=== PATIENT | female | born 1985 | race Caucasian/White ===

== ENCOUNTER 2017-05-01 20:28 | Emergency (ER) | payer SELFPAY ==
[~2017-05-01] VITALS: Wt 66.5 kg
[2017-05-01 21:13] VITALS: Wt 66.5 kg
[2017-05-01] MEDS ORDERED: ACETAMINOPHEN 325 MG TAB PO STA (21:37)
--- NOTE | 2017-05-01 21:42 | ERD ---
ER Documentation Chief Complaint Date/Time DATE: 05/01/17 TIME: 21:39 Chief Complaint Vaginal bleeding with Pelvic pain at 1400. 7 weeks HPI This is a 31-year-old female presenting to the emergency department for vaginal bleeding and pelvic pain x 7 hours. Patient states she is currently 7 weeks and unsure of her last menstrual period. Patient has had pelvic pain to suprapubic area that radiates to her lower back for the past 3 days. Patient developed light red vaginal bleeding with passage of multiple clots starting today. Patient is a A1. 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 Patient is unsure who her SENIOR LINUX UNIX ENGINEER's. Patient has not had an ultrasound yet. ROS All systems reviewed and are negative except as per history of present illness. Medications Home Meds Discontinued Scripts Hydrocodone/Acetaminophen ([place] 5-325 Tablet) 1 Each Tablet, 1 TAB PO Q6H Y for PAIN, #7 TAB Prov:YANELIS NASH NP 05/02/17 Allergies Allergies: Coded Allergies: No Known Allergy (Unverified , 05/01/17) Physical Exam Vitals Vital Signs Date Time Temp Pulse Resp B/P Pulse Ox O2 Delivery O2 Flow Rate FiO2 05/02/17 01:10 67 18 109/57 98 Room Air 05/01/17 21:13 99.0 77 20 119/57 99 Physical Exam Const: No acute distress, alert Head: Atraumatic Eyes: Normal Conjunctiva ENT: Normal External Ears, Nose and Mouth. Neck: Full range of motion..~ No meningismus. Resp: Clear to auscultation bilaterally Cardio: Regular rate and rhythm, no murmurs Abd: Soft, non tender, non distended. Normal bowel sounds Skin: No petechiae or rashes Back: No midline or flank tenderness Ext: No cyanosis, or edema Neur: Awake and alert Psych: Normal Mood and Affect Result Diagram: 05/01/17 2200 Results 24 hrs Laboratory Tests Test 05/01/17 21:57 05/01/17 22:00 Bedside Urine pH (LAB) 6.5 Bedside Urine Protein (LAB) Negative Bedside Urine Glucose (UA) Negative Bedside Urine Ketones (LAB) Negative Bedside Urine Blood 2+ Bedside Urine Nitrite (LAB) Negative Bedside Urine Leukocyte Esterase (L Negative White Blood Count 9.310^3/ul Red Blood Count 4.8210^6/ul Hemoglobin 13.3g/dl Hematocrit 41.1% Mean Corpuscular Volume 85.3fl Mean Corpuscular Hemoglobin 27.6pg Mean Corpuscular Hemoglobin Concent 32.4g/dl Red Cell Distribution Width 15.8% Platelet Count 19163^3/UL Mean Platelet Volume 11.1fl Neutrophils % 70.6% Lymphocytes % 20.9% Monocytes % 5.7% Eosinophils % 2.1% Basophils % 0.5% Nucleated Red Blood Cells % 0.0/100WBC Neutrophils # 6.610^3/ul Lymphocytes # 2.010^3/ul Monocytes # 0.510^3/ul Eosinophils # 0.210^3/ul Basophils # 0.110^3/ul Nucleated Red Blood Cells # 0.010^3/ul Beta HCG, Quantitative < 2.4mIU/ml Current Medications Medications (Trade) Dose Ordered Sig/Liza Route PRN Reason Start Time Stop Time Status Last Admin Dose Admin Acetaminophen (Tylenol Tab) 650 mg ONCE STAT PO 05/01/17 21:37 05/01/17 21:39 DC 05/01/17 21:52 Ceftriaxone Sodium (Rocephin) 250 mg ONCE ONCE IM 05/02/17 00:00 05/02/17 00:00 DC Azithromycin (Zithromax) 1,000 mg ONCE ONCE PO 05/02/17 00:00 05/02/17 00:00 DC Acetaminophen/ Hydrocodone Bitart ([place] (5/325)) 1 tab ONCE ONCE PO 05/02/17 00:30 05/02/17 00:31 DC 05/02/17 00:39 Procedures/[facility]M DIAGNOSTIC IMAGING REPORT Patient: VILMA MURO : 1985 Age: 31 Sex: F MR #: [id number] DOS: 05/01/17 2137 Ordering MD: YANELIS NASH NP Location: FTE Room/Bed: PROCEDURE: US Pelvis. CLINICAL INDICATION: vaginal bleeding TECHNIQUE: Multiple sonographic images of the pelvis were obtained utilizing a transabdominal and endovaginal technique. The images were reviewed on a PACS workstation. COMPARISON: None. FINDINGS: The uterus is normal in size and demonstrates a normal appearance of the myometrium. The endometrial stripe is homogeneous in appearance and has the thickness of 15 mm. No intrauterine gestation is noted. The right ovary measures 2.1 x 1.7 x 1.5 cm. The left ovary was not visualized. No free fluid is present within the pelvis.. RPTAT: AA IMPRESSION: Limited study since only transabdominal images were obtained. Left ovary was not visualized. No intrauterine gestation visualized. Differential diagnosis includes early , missed or ectopic . Follow-up ultrasound and HCG levels is recommended. MDM: 31-year-old female presents emergency department for pelvic pain and vaginal bleeding while . Patient states she is currently 7 weeks . Patient is a A1. Labs and urine were ordered. Patient given Tylenol while in the ED. OB ultrasound ordered. OB ultrasound reviewed by radiologist as no intrauterine gestation visualized. Differential diagnosis includes early , missed or ectopic . Follow up ultrasound and HCG levels is recommended. Labs show Hcg <2.4. No significant anemia or infection. Urine is negative for infection. Patient continues to have suprapubic pain/cramping after Tylenol. Patient given [place] while in the ED and states pain has improved. Differential diagnosis includes but not limited to ectopic , threatened , missed , normal , subchorionic hemorrhage , ruptured ovarian cyst, UTI or pyelonephritis. Instructed patient to return in 2 days for repeat lab work and ultrasound. Patient is appropriate for outpatient management. Instructed patient to follow- up here in the ED in 1-2 days. Return to ED sooner for any high fever, chest pain, difficulty breathing, shortness breath, wheezing, vomiting, diarrhea, abdominal pain or any new or worsening symptoms. Patient verbalizes understanding. All questions answered at discharge. Departure Diagnosis: Primary Impression: Vaginal bleeding in patient at less than 20 weeks gestation Condition: YANELIS Haynes NP May 01, 2017 21:42
[2017-05-01 21:53] LABS: URINE BLOOD (Dip) POC 2+ (NEGATIVE)
[2017-05-01 22:15] LABS: ADD SCAN DIFF NO
[2017-05-01 22:18] LABS: BASOPHIL # 0.1 10^3/ul (0.0-0.1); BASOPHILS % 0.5 % (0.0-2.0); EOSINOPHILS # 0.2 10^3/ul (0.0-0.5); EOSINOPHILS % 2.1 % (0.0-7.0); HEMATOCRIT 41.1 % (37.0-47.0); HEMOGLOBIN 13.3 g/dl (12.0-16.0); LYMPHOCYTES % 20.9 % (15.0-51.0); MEAN CORPUSCULAR HEMOGLOBIN 27.6 pg (29.0-33.0); MEAN CORPUSCULAR HGB CONC 32.4 g/dl (32.0-37.0); MEAN CORPUSCULAR VOLUME 85.3 fl (82.0-101.0); MEAN PLATELET VOLUME 11.1 fl (7.4-10.4); MONOCYTE # 0.5 10^3/ul (0.3-0.9); MONOCYTES % 5.7 % (0.0-11.0); NEUTROPHIL # 6.6 10^3/ul (1.6-7.5); NEUTROPHILS % 70.6 % (39.0-77.0); PLATELET COUNT 238 10^3/UL (140-415); RED BLOOD COUNT 4.82 10^6/ul (4.20-5.40); RED CELL DISTRIBUTION WIDTH 15.8 % (11.5-14.5); WHITE BLOOD COUNT 9.3 10^3/ul (4.8-10.8)
--- NOTE | 2017-05-01 22:54 | RADRPT ---
PROCEDURE: US Pelvis. CLINICAL INDICATION: vaginal bleeding TECHNIQUE: Multiple sonographic images of the pelvis were obtained utilizing a transabdominal and endovaginal technique. The images were reviewed on a PACS workstation. COMPARISON: None. FINDINGS: The uterus is normal in size and demonstrates a normal appearance of the myometrium. The endometria l stripe is homogeneous in appearance and has the thickness of 15 mm. No intrauterine gestation is noted. The right ovary measures 2.1 x 1.7 x 1.5 cm. The left ovary was not visualized. No free fluid is present within the pelvis.. RPTAT: AA IMPRESSION: Limited study since only transabdominal images were obtained. Left ovary was not visualized. No intrauterine gestation visualized. Differential diagnosis includes early , missed or ectopic . Follow-up ultrasound and HCG levels is recommended. .Pelon Adam MD, Date Time Electronically viewed and signed by .Pelon Adam MD, MD on 05/01/2017 22:54 .S/
[2017-05-02] MEDS ORDERED: AZITHROMYCIN 250 MG TAB PO ONE
[2017-05-02] MEDS ORDERED: CEFTRIAXONE 250 MG INJ IM ONE
[2017-05-02] MEDS ORDERED: HYDROCODONE/APAP (5/325) TAB PO ONE (00:30)
[2017-05-02] MEDS ORDERED: HYDR-906 PO (00:39)
[2017-05-02 01:10] VITALS: BP 109/57; PULSE 67; RESP 18
== END 2017-05-02 01:11 | disposition home or self-care (01) ==
LOC: FTE 20:28
DX: O20.9 Hemorrhage in early pregnancy, unspecified (principal); R10.2 Pelvic and perineal pain; Z3A.01 Less than 8 weeks gestation of pregnancy
CPT/HCPCS: 36415; 76801; 81003; 84702; 85025; 86900; 86901

== ENCOUNTER 2017-08-19 14:26 | Emergency (ER) | payer MEDICAID ==
[~2017-08-19] VITALS: Ht 160 cm; Wt 62.5 kg
[2017-08-19 14:29] VITALS: Ht 160 cm; Wt 62.5 kg
[2017-08-19] MEDS ORDERED: morphine 4 MG/ML VIAL IV STA ×2 (15:40→17:55)
[2017-08-19] MEDS ORDERED: SOD CHLORIDE 0.9% 1,000 ML IV STA (15:40)
[2017-08-19] MEDS ORDERED: ONDANSETRON 4 MG INJ IV STA (15:40)
--- NOTE | 2017-08-19 16:02 | RADRPT ---
PROCEDURE: Chest x-ray CLINICAL INDICATION: Abdominal pain TECHNIQUE: Chest single view COMPARISON: None FINDINGS: The heart is normal in size. The pulmonary vessels are normal in caliber. The lungs are clear. Th e costophrenic angles are sharp. The visualized bony thorax is unremarkable. IMPRESSION: No acute cardiopulmonary disease. No free air under the diaphragms RPTAT: HH .Tate Pepper MD, Date Time Electronically viewed and signed by .Tate Pepper MD, MD on 08/19/2017 16:01 .W/
[2017-08-19 16:06] LABS: BASOPHILS % 0.3 % (0.0-2.0); EOSINOPHILS # 0.2 10^3/ul (0.0-0.5); EOSINOPHILS % 3.1 % (0.0-7.0); HEMATOCRIT 42.8 % (37.0-47.0); LYMPHOCYTES % 31.9 % (15.0-51.0); MEAN CORPUSCULAR HEMOGLOBIN 28.1 pg (29.0-33.0); MEAN CORPUSCULAR HGB CONC 32.7 g/dl (32.0-37.0); MEAN CORPUSCULAR VOLUME 85.8 fl (82.0-101.0); MEAN PLATELET VOLUME 11.9 fl (7.4-10.4); MONOCYTES % 14.9 % (0.0-11.0); NEUTROPHIL # 3.2 10^3/ul (1.6-7.5); NEUTROPHILS % 49.6 % (39.0-77.0); PLATELET COUNT 212 10^3/UL (140-415); RED BLOOD COUNT 4.99 10^6/ul (4.20-5.40); RED CELL DISTRIBUTION WIDTH 13.7 % (11.5-14.5); WHITE BLOOD COUNT 6.4 10^3/ul (4.8-10.8)
[2017-08-19 16:27] LABS: ALANINE AMINOTRANSFERASE 25 IU/L (13-69); ALBUMIN 4.8 g/dl (3.3-4.9); ALBUMIN/GLOBULIN RATIO 1.29; ALKALINE PHOSPHATASE 80 IU/L (42-121); ANION GAP 16 (8-16); ASPARTATE AMINO TRANSFERASE 26 IU/L (15-46); BILIRUBIN,INDIRECT 0.3 mg/dl (0-1.1); BILIRUBIN,TOTAL 0.3 mg/dl (0.2-1.3); BLOOD UREA NITROGEN 11 mg/dl (7-20); CARBON DIOXIDE 22 mmol/L (21-31); CHLORIDE 105 mmol/L (97-110); CREATININE 0.62 mg/dl (0.44-1.00); GLUCOSE 99 mg/dl (70-220); POTASSIUM 3.8 mmol/L (3.5-5.1); SODIUM 139 mmol/L (135-144); TOTAL PROTEIN 8.5 g/dl (6.1-8.1)
[2017-08-19 16:39] LABS: INR 0.9; PROTIME 12.1 Sec (12.2-14.2); PT RATIO 0.9
[2017-08-19 16:40] LABS: PARTIAL THROMBOPLASTIN TIME 28.2 Sec (25.0-35.0)
[2017-08-19 16:44] LABS: TROPONIN-I < 0.012 ng/ml (0.00-0.12)
[2017-08-19 17:10] LABS: ADD UMIC NO; UR ASCORBIC ACID NEGATIVE (NEGATIVE); UR BILIRUBIN (Dip) NEGATIVE (NEGATIVE); UR BLOOD (Dip) NEGATIVE (NEGATIVE); UR CLARITY CLEAR (CLEAR); UR COLOR YELLOW (YELLOW); UR GLUCOSE (Dip) NEGATIVE (NEGATIVE); UR KETONES (Dip) 1+ mg/dL (NEGATIVE); UR LEUKOCYTE ESTERASE (Dip) NEGATIVE Leu/ul (NEGATIVE); UR NITRITE (Dip) NEGATIVE (NEGATIVE); UR SPECIFIC GRAVITY (Dip) 1.016 (1.003-1.030); UR TOTAL PROTEIN (Dip) NEGATIVE (NEGATIVE); UR UROBILINOGEN (Dip) NEGATIVE (NEGATIVE)
[2017-08-19] MEDS ORDERED: GABA100C14 PO (17:32)
[2017-08-19] MEDS ORDERED: IBUP-1542 PO ×2 (17:33→18:13)
--- NOTE | 2017-08-19 18:00 | RADRPT ---
PROCEDURE: CT abdomen and pelvis without contrast. CLINICAL INDICATION: Abdominal pain TECHNIQUE: Continues 2.5 mm axial images were obtained from the domes of the diaphragms to the inf erior pubic rami. No oral or intravenous contrast was administered. The calculated dose length prod uct (DLP) = 404.93 mGy-cm. Exam CTDlvol = 7.66 mGy. One or more of the following dose reduction t echniques were used: Automated exposure control, adjustment of the mA and or KV according to patient size, or use of iterative reconstruction technique. One or more of the following dose reduction te chniques were used: Automated exposure control, adjustment of the mA and or KV according to patient size, or use of iterative reconstruction technique. COMPARISON: None. FINDINGS: The lung bases are clear. No pleural pericardial fluid is seen. Liver, gallbladder, pancreas, spleen, adrenals, and kidneys are within normal limits on this noncont rast study. There is no evidence of renal calculi or obstructive uropathy. Aorta is normal in calibe r. There are prominent number of reactive lymph nodes through the mesentery extending into the right lower quadrant. This is suggestive of mesenteric adenitis.. The stomach is within normal limits. Th ere is slight stranding adjacent to distal small bowel loops in the right lower quadrant which may s uggest a small-bowel enteritis. No small bowel obstruction is seen. There is no free fluid, free air , abscess. CT pelvis: Images through the pelvis demonstrate no free fluid, free air, abscess. Bladder is catie lly distended grossly unremarkable. Uterus and adnexa are within normal limits. Evaluation of the co michael demonstrates no diverticulosis, diverticulitis or acute colitis. Normal appendix is visualized. Terminal ileum is unremarkable. There are no pathologically enlarged iliac chain lymph nodes. No destructive bony lesions are seen. IMPRESSION: 1. Slight mesenteric stranding adjacent to distal small bowel loops in the right lower quadrant. Th is may suggest mild small-bowel enteritis. No significant wall thickening or small bowel dilatation identified. 2. Reactive mesenteric lymph node suggesting mesenteric adenitis. 3. No free fluid, free air, abscess. 4. Normal appendix and terminal ileum. 5. No evidence of renal calculi or obstructive uropathy RPTAT: HH .Tate Pepper MD, MD Date Time Electronically viewed and signed by .Tate Pepper MD, MD on 08/19/2017 18:00 .W/
[2017-08-19] MEDS ORDERED: ONDA4TAB14 PO (18:13)
[2017-08-19] MEDS ORDERED: HYDR-906 PO (18:13)
[2017-08-19 18:32] VITALS: BP 118/66; PULSE 78; RESP 18; TEMP 98.4
--- NOTE | 2017-08-19 18:37 | ERD ---
ER Documentation Chief Complaint Date/Time DATE: 08/19/17 TIME: 18:25 Chief Complaint abdominal pain, vomiting and diarrhea x 4 days HPI Patient is a 31-year-old female with no medical problems who presents with abdominal pain and vomiting. She passed out in the bathroom while waiting for the ER. She had vomiting and diarrhea and abdominal pain which started Wednesday after eating seafood. She has a headache as well. She has bilateral lower abdominal pain which she describes as a cramping pain. She said the pain comes and goes. She has had no treatment as of yet. She says that she is not and is currently on her period. ROS All systems reviewed and are negative except as per history of present illness. Medications Home Meds Active Scripts Ondansetron (Ondansetron Odt) 4 Mg Tab.rapdis, 4 MG PO Q6H Y for NAUSEA AND/OR VOMITING, #30 TAB Prov:SUZIE GOMEZ MD 08/19/17 Ibuprofen* (Motrin*) 600 Mg Tab, 600 MG PO Q6H Y for PAIN AND OR ELEVATED TEMP, #30 TAB Prov:SUZIE GOMEZ MD 08/19/17 Hydrocodone/Acetaminophen ([place] 5-325 Tablet) 1 Each Tablet, 1 TAB PO Q6H Y for PAIN, #7 TAB Prov:SUZIE GOMEZ MD 08/19/17 Reported Medications Ibuprofen* (Ibuprofen*) 600 Mg Tablet, 600 MG PO BID Y for PAIN, TAB 08/19/17 Gabapentin* (Gabapentin*) 100 Mg Capsule, 200 MG PO BID, #180 CAP 08/19/17 Allergies Allergies: Coded Allergies: No Known Allergy (Unverified , 08/19/17) PMhx/Soc Medical and Surgical Hx: pt denies Medical Hx, pt denies Surgical Hx Hx Alcohol Use: No Hx Substance Use: No Hx Tobacco Use: No Smoking Status: Never smoker FmHx Family History: diabetes Physical Exam Vitals Vital Signs Date Time Temp Pulse Resp B/P Pulse Ox O2 Delivery O2 Flow Rate FiO2 08/19/17 14:29 100.0 84 18 114/69 100 Physical Exam Const: Moderate distress secondary to pain Head: Atraumatic Eyes: Normal Conjunctiva ENT: Normal External Ears, Nose and Mouth. Neck: Full range of motion..~ No meningismus. Resp: Clear to auscultation bilaterally Cardio: Regular rate and rhythm, no murmurs Abd: Soft, diffuse tenderness to palpation without rebound or guarding Skin: No petechiae or rashes Back: No midline or flank tenderness Ext: No cyanosis, or edema Neur: Awake and alert Psych: Normal Mood and Affect Result Diagram: 08/19/17 1550 08/19/17 1550 Results 24 hrs Laboratory Tests Test 08/19/17 15:50 08/19/17 16:21 White Blood Count 6.410^3/ul Red Blood Count 4.9910^6/ul Hemoglobin 14.0g/dl Hematocrit 42.8% Mean Corpuscular Volume 85.8fl Mean Corpuscular Hemoglobin 28.1pg Mean Corpuscular Hemoglobin Concent 32.7g/dl Red Cell Distribution Width 13.7% Platelet Count 59340^3/UL Mean Platelet Volume 11.9fl Neutrophils % 49.6% Lymphocytes % 31.9% Monocytes % 14.9% Eosinophils % 3.1% Basophils % 0.3% Nucleated Red Blood Cells % 0.0/100WBC Neutrophils # 3.210^3/ul Lymphocytes # 2.010^3/ul Monocytes # 1.010^3/ul Eosinophils # 0.210^3/ul Basophils # 0.010^3/ul Nucleated Red Blood Cells # 0.010^3/ul Prothrombin Time 12.1Sec Prothrombin Time Ratio 0.9 INR International Normalized Ratio 0.90 Activated Partial Thromboplast Time 28.2Sec Sodium Level 139mmol/L Potassium Level 3.8mmol/L Chloride Level 105mmol/L Carbon Dioxide Level 22mmol/L Anion Gap 16 Blood Urea Nitrogen 11mg/dl Creatinine 0.62mg/dl Glucose Level 99mg/dl Calcium Level 10.0mg/dl Total Bilirubin 0.3mg/dl Direct Bilirubin 0.00mg/dl Indirect Bilirubin 0.3mg/dl Aspartate Amino Transf (AST/SGOT) 26IU/L Alanine Aminotransferase (ALT/SGPT) 25IU/L Alkaline Phosphatase 80IU/L Troponin I < 0.012ng/ml Total Protein 8.5g/dl Albumin 4.8g/dl Globulin 3.70g/dl Albumin/Globulin Ratio 1.29 Lipase 72U/L Serum HCG, Qualitative NEGATIVE Urine Color YELLOW Urine Clarity CLEAR Urine pH 8.0 Urine Specific [place] 1.016 Urine Ketones 1+mg/dL Urine Nitrite NEGATIVEmg/dL Urine Bilirubin NEGATIVEmg/dL Urine Urobilinogen NEGATIVEmg/dL Urine Leukocyte Esterase NEGATIVELeu/ul Urine Hemoglobin NEGATIVEmg/dL Urine Glucose NEGATIVEmg/dL Urine Total Protein NEGATIVEmg/dl Current Medications Medications (Trade) Dose Ordered Sig/Liza Route PRN Reason Start Time Stop Time Status Last Admin Dose Admin Sodium Chloride (NS) 1,000 ml @ 1,000 mls/hr Q1H STAT IV 08/19/17 15:40 08/19/17 16:39 DC 08/19/17 16:00 Morphine Sulfate (morphine) 4 mg ONCE STAT IV 08/19/17 15:40 08/19/17 15:42 DC 08/19/17 16:03 Ondansetron HCl (Zofran Inj) 4 mg ONCE STAT IV 08/19/17 15:40 08/19/17 15:42 DC 08/19/17 16:00 Morphine Sulfate (morphine) 4 mg ONCE STAT IV 08/19/17 17:55 08/19/17 17:56 DC 08/19/17 18:08 Procedures/[facility] EKG read by me: Rate/Rhythm: Regular rate and rhythm at a normal rate Intervals: Normal Impression: No evidence of ischemia or arrhythmia Departure Diagnosis: Primary Impression: Vomiting and diarrhea Additional Impression: Abdominal pain Condition: Fair Patient Instructions: Abdominal Pain, Self-Care for Vomiting and Diarrhea Referrals: [facility] () Usted se nguyen hecho un examen mdico de control que le indica que no est en remy condicin que requiera tratamiento urgente en el Departamento de Emergencia. Un estudio ms profundo y el tratamiento de rush condicin pueden esperar sin ningn riesgo hasta que usted sea atendida/o en el consultorio de rush mdico o remy cl naomie. Es responsabilidad suya arreglar remy jolie para el seguimiento del jennifer. MANEJO DE CONDICIONES NO URGENTES EN EL FUTURO 1) Si usted tiene un mdico de atencin primaria: Usted debera llamar a rush mdico de atencin primaria antes de venir al departamento de emergencia. Despus de las horas de consultorio, rush doctor o rush asociado/a est disponible por telfono. El mdico o enfermero de alfredito en el servicio telefnico puede asesorarle por jacob medio para atender el problema, o jennifer contrario se puede programar remy jolie. 2) Si usted no tiene un mdico de atencin primaria: Llame al mdico o clnica de referencia que aparece abajo wiliam las horas de consultorio para hacer remy jolie para que le vean. CLINICAS: [place] [id number] [phone] [facility] [phone] [facility] [phone] [place] [phone] [place] [address] [phone] [place] [id number] [phone] Additional Instructions: Visite a rsuh mdico maana para un EXAMEN.Regrese a estas instalaciones si no se mejora avila esperbamos o avila le dijimos. SUZIE GOMEZ MD Aug 19, 2017 18:37
== END 2017-08-19 18:34 | disposition home or self-care (01) ==
LOC: E/R 14:26
DX: R11.10 Vomiting, unspecified (principal); R10.84 Generalized abdominal pain; R19.7 Diarrhea, unspecified
CPT/HCPCS: 36415; 71010; 74176; 80053; 81003; 83690; 84484; 84703; 85025; 85610; 85730; 93005; 96374; 96375; 96376; J2270; J2405; J7030; Z7502

== ENCOUNTER 2017-10-21 20:52 | Emergency (ER) | payer MEDICAID, OTHER ==
[~2017-10-21] VITALS: Ht 165.1 cm; Wt 63.7 kg
[~2017-10-21 20:52] MED LIST: GABA100C14 PO; HYDR-906 PO; IBUP-1542 PO; ONDA4TAB14 PO
[2017-10-21 20:54] VITALS: Ht 165.1 cm; Wt 63.7 kg
--- NOTE | 2017-10-21 22:41 | ERD ---
ER Documentation Chief Complaint Chief Complaint 10 wks , pelvic pain x 1 day HPI The patient is a 31-year-old female, presenting to the ER because of acute pelvic pain for the last 4 hours, denies vaginal bleeding, vaginal discharge, associated with dysuria and polyuria. Denies fever, chills, neck pain, chest pain, dyspnea, vomiting. She does not smoke nor drink, 2 para 0 1 Past medical/surgical history: None ROS All systems reviewed and are negative except as per history of present illness. Medications Home Meds Active Scripts Acetaminophen* (Tylenol*) 325 Mg Tablet, 2 TAB PO Q6 Y for PAIN AND OR ELEVATED TEMP, #20 TAB Prov:CHRIS DISLA MD 10/22/17 Discontinued Reported Medications Ibuprofen* (Ibuprofen*) 600 Mg Tablet, 600 MG PO BID Y for PAIN, TAB 08/19/17 Gabapentin* (Gabapentin*) 100 Mg Capsule, 200 MG PO BID, #180 CAP 08/19/17 Discontinued Scripts Ondansetron (Ondansetron Odt) 4 Mg Tab.rapdis, 4 MG PO Q6H Y for NAUSEA AND/OR VOMITING, #30 TAB Prov:SUZIE GOMEZ MD 08/19/17 Ibuprofen* (Motrin*) 600 Mg Tab, 600 MG PO Q6H Y for PAIN AND OR ELEVATED TEMP, #30 TAB Prov:SUZIE GOMEZ MD 08/19/17 Hydrocodone/Acetaminophen ([place] 5-325 Tablet) 1 Each Tablet, 1 TAB PO Q6H Y for PAIN, #7 TAB Prov:SUZIE GOMEZ MD 08/19/17 Allergies Allergies: Coded Allergies: No Known Allergy (Unverified , 10/21/17) PMhx/Soc Hx Alcohol Use: No Hx Substance Use: No Hx Tobacco Use: No Physical Exam Vitals Vital Signs Date Time Temp Pulse Resp B/P Pulse Ox O2 Delivery O2 Flow Rate FiO2 10/22/17 00:54 98.0 68 20 128/71 100 Room Air 10/21/17 20:54 98.0 78 20 130/73 100 Physical Exam Const: No acute distress. Head: Atraumatic. Eyes: Normal Conjunctiva. ENT: Normal External Ears, Nose and Mouth. Neck: Full range of motion. No meningismus. Resp: Clear to auscultation bilaterally. Cardio: Regular rate and rhythm. Abd: Soft, non distended, normal bowel sounds, mild suprapubic tenderness, no right lower quadrant, right upper quadrant, epigastric, CVA tenderness Skin: No petechiae or rashes. Back: No midline or flank tenderness. Ext: No cyanosis, or edema. Neur: Awake and alert. No focal deficit Psych: Normal Mood and Affect. Result Diagram: 10/21/17 2350 10/21/17 2350 Results 24 hrs Laboratory Tests Test 10/21/17 22:51 10/21/17 23:50 Bedside Urine pH (LAB) 7.0 Bedside Urine Protein (LAB) Negative Bedside Urine Glucose (UA) Negative Bedside Urine Ketones (LAB) Negative Bedside Urine Blood Negative Bedside Urine Nitrite (LAB) Negative Bedside Urine Leukocyte Esterase (L Negative White Blood Count 10.710^3/ul Red Blood Count 4.4610^6/ul Hemoglobin 12.8g/dl Hematocrit 38.3% Mean Corpuscular Volume 85.9fl Mean Corpuscular Hemoglobin 28.7pg Mean Corpuscular Hemoglobin Concent 33.4g/dl Red Cell Distribution Width 14.1% Platelet Count 96180^3/UL Mean Platelet Volume 11.3fl Neutrophils % 67.3% Lymphocytes % 24.0% Monocytes % 6.1% Eosinophils % 1.8% Basophils % 0.5% Nucleated Red Blood Cells % 0.0/100WBC Neutrophils # 7.210^3/ul Lymphocytes # 2.610^3/ul Monocytes # 0.710^3/ul Eosinophils # 0.210^3/ul Basophils # 0.110^3/ul Nucleated Red Blood Cells # 0.010^3/ul Sodium Level 138mmol/L Potassium Level 3.6mmol/L Chloride Level 104mmol/L Carbon Dioxide Level 24mmol/L Anion Gap 14 Blood Urea Nitrogen 9mg/dl Creatinine 0.52mg/dl Glucose Level 86mg/dl Calcium Level 9.9mg/dl Total Bilirubin 0.3mg/dl Direct Bilirubin 0.00mg/dl Indirect Bilirubin 0.3mg/dl Aspartate Amino Transf (AST/SGOT) 26IU/L Alanine Aminotransferase (ALT/SGPT) 40IU/L Alkaline Phosphatase 67IU/L Total Protein 7.6g/dl Albumin 4.3g/dl Globulin 3.30g/dl Albumin/Globulin Ratio 1.30 Lipase 82U/L Beta HCG, Quantitative 76918.0mIU/ml Current Medications Medications (Trade) Dose Ordered Sig/Liza Route PRN Reason Start Time Stop Time Status Last Admin Dose Admin Sodium Chloride (NS) 1,000 ml @ 1,000 mls/hr Q1H ONCE IV 10/21/17 23:30 10/22/17 00:29 DC 10/22/17 00:04 Morphine Sulfate (morphine) 2 mg ONCE STAT IV 10/21/17 23:16 10/21/17 23:19 DC Ondansetron HCl (Zofran Inj) 4 mg ONCE STAT IV 10/21/17 23:16 10/21/17 23:19 DC Procedures/[place] [id number] Radiology Main Line: [phone] DIAGNOSTIC IMAGING REPORT Patient: VILMA MURO : 1985 Age: 31 Sex: F MR #: [id number] DOS: 10/21/17 2316 Ordering MD: CHRIS DISLA MD Location: E/R Room/Bed: PROCEDURE: US OB. CLINICAL INDICATION: Pain. TECHNIQUE: Multiple sonographic images of the pelvis were obtained. Transabdominal and transvaginal views of the pelvis are available for review. The images were reviewed on a PACS workstation. COMPARISON: Pelvic ultrasound 05/01/2017 FINDINGS: A single live intrauterine is identified. heart rate is 176 beats per minute. The crown-rump length is 2.69 cm which corresponds to 9 weeks 3 days gestational age by ultrasound criteria. Estimated date of delivery is by crown rump length.. There is a 1.7 cm subchorionic hemorrhage adjacent to the gestational sac. Right ovary is not visualized. The left ovary is unremarkable with vascular flow identified.. There is no adnexal mass. There is no free fluid. IMPRESSION: 1. Single live intrauterine gestation of approximately 9 weeks 3 days by crown rump length. 2. Subchorionic hemorrhage present. 3. Right ovary not visualized. RPTAT: HMVK .Chris Castaneda MD, Date Time Electronically viewed and signed by .Chris Castaneda MD, MD on 10/21/2017 23:58 .K/ CC: CHRIS DISLA MD MEDICAL MAKING DECISION: The patient is a 31-year-old female, presenting with acute pelvic pain with small intrauterine subchorionic hemorrhage. She was treated with morphine 2 mg IV for pain, Zofran 4 mg IV for nausea and 1 L normal saline for clinical dehydration with good response. The differential diagnoses considered include but are not limited to UTI, subchorionic hemorrhage, threatened/incomplete/inevitable/complete , ectopic , non- related bleeding. Departure Diagnosis: Primary Impression: Pelvic pain complicating Condition: Good Comments The patient's blood pressure was elevated (>120/80) but appears stable without evidence of hypertension emergency or urgency. The patient was counseled about the risks of hypertension and urged to pursue outpatient monitoring and therapy within a week with their primary care physician. I discussed the findings with the patient. 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 Disclaimer: Inadvertent spelling and grammatical errors are likely due to EHR/ dictation software use and do not reflect on the overall quality of patient care. Also, please note that the electronic time recorded on this note does not necessarily reflect the actual time of the patient encounter. CHRIS DISLA MD Oct 21, 2017 22:41
[2017-10-21 22:52] LABS: URINE BLOOD (Dip) POC Negative (NEGATIVE)
[2017-10-21] MEDS ORDERED: morphine 2 MG INJ IV STA (23:16)
[2017-10-21] MEDS ORDERED: ONDANSETRON 4 MG INJ IV STA (23:16)
[2017-10-21] MEDS ORDERED: SOD CHLORIDE 0.9% 1,000 ML IV ONE (23:30)
--- NOTE | 2017-10-21 23:58 | RADRPT ---
PROCEDURE: US OB. CLINICAL INDICATION: Pain. TECHNIQUE: Multiple sonographic images of the pelvis were obtained. Transabdominal and transvagin al views of the pelvis are available for review. The images were reviewed on a PACS workstation. COMPARISON: Pelvic ultrasound 05/01/2017 FINDINGS: A single live intrauterine is identified. heart rate is 176 beats per minute. The cr own-rump length is 2.69 cm which corresponds to 9 weeks 3 days gestational age by ultrasound criteri a. Estimated date of delivery is 05/23/2018 by crown rump length.. There is a 1.7 cm subchorionic hemorrhage adjacent to the gestational sac. Right ovary is not visualized. The left ovary is unremar kable with vascular flow identified.. There is no adnexal mass. There is no free fluid. IMPRESSION: 1. Single live intrauterine gestation of approximately 9 weeks 3 days by crown rump length. 2. Subchorionic hemorrhage present. 3. Right ovary not visualized. RPTAT: HMVK .Chris Castaneda MD, Date Time Electronically viewed and signed by .Chris Castaneda MD, MD on 10/21/2017 23:58 .K/
[2017-10-22 00:03] LABS: BASOPHIL # 0.1 10^3/ul (0.0-0.1); BASOPHILS % 0.5 % (0.0-2.0); EOSINOPHILS # 0.2 10^3/ul (0.0-0.5); EOSINOPHILS % 1.8 % (0.0-7.0); HEMATOCRIT 38.3 % (37.0-47.0); HEMOGLOBIN 12.8 g/dl (12.0-16.0); LYMPHOCYTES # 2.6 10^3/ul (0.8-2.9); MEAN CORPUSCULAR HEMOGLOBIN 28.7 pg (29.0-33.0); MEAN CORPUSCULAR HGB CONC 33.4 g/dl (32.0-37.0); MEAN CORPUSCULAR VOLUME 85.9 fl (82.0-101.0); MEAN PLATELET VOLUME 11.3 fl (7.4-10.4); MONOCYTE # 0.7 10^3/ul (0.3-0.9); MONOCYTES % 6.1 % (0.0-11.0); NEUTROPHIL # 7.2 10^3/ul (1.6-7.5); NEUTROPHILS % 67.3 % (39.0-77.0); PLATELET COUNT 208 10^3/UL (140-415); RED BLOOD COUNT 4.46 10^6/ul (4.20-5.40); RED CELL DISTRIBUTION WIDTH 14.1 % (11.5-14.5); WHITE BLOOD COUNT 10.7 10^3/ul (4.8-10.8)
[2017-10-22 00:30] LABS: ALBUMIN 4.3 g/dl (3.3-4.9); ALBUMIN/GLOBULIN RATIO 1.3; BILIRUBIN,INDIRECT 0.3 mg/dl (0-1.1); BILIRUBIN,TOTAL 0.3 mg/dl (0.2-1.3); CALCIUM 9.9 mg/dl (8.4-10.2); CREATININE 0.52 mg/dl (0.44-1.00); POTASSIUM 3.6 mmol/L (3.5-5.1); TOTAL PROTEIN 7.6 g/dl (6.1-8.1)
[2017-10-22] MEDS ORDERED: ACET325T33 PO (00:44)
[2017-10-22 00:54] VITALS: BP 128/71; PULSE 68; RESP 20; TEMP 98
== END 2017-10-22 00:15 | disposition home or self-care (01) ==
LOC: E/R 20:52
DX: O26.891 Other specified pregnancy related conditions, first trimester (principal); R10.2 Pelvic and perineal pain; Z3A.09 9 weeks gestation of pregnancy
CPT/HCPCS: 36415; 76801; 80053; 81003; 83690; 84702; 85025; 86900; 86901; J7030; Z7502; J2270; J2405